=== PATIENT | male | born 1950 | race Caucasian/White ===

== ENCOUNTER 2016-12-11 21:10 | Inpatient (IN) | payer MEDICARE, MEDICAID ==
[~2016-12-11] VITALS: Ht 157.5 cm; Wt 79.1 kg
[~2016-12-11 21:10] MED LIST: CLOP75TA33 PO; GABA-531 PO; ISOS30TA6 PO; PRAV80TA21 PO
[2016-12-11 21:46] LABS: BASOPHILS % 0.5 % (0.0-2.0); EOSINOPHILS % 2.5 % (0.0-5.0); HEMATOCRIT. 40.9 % (42.0-52.0); HEMOGLOBIN. 13.4 g/dL (14.0-18.0); MEAN CORPUSCULAR HEMOGLOBIN 25.9 pg (28.0-32.0); MEAN PLATELET VOLUME 7.3 fl (7.4-10.4); MONOCYTES % 9.3 % (2.0-8.0); NEUTROPHILS % 69.7 % (40.0-76.0); PLATELET 212 x1000/uL (130-400); RED BLOOD CELL COUNT 5.18 mill/uL (4.7-6.1); RED CELL DISTRIBUTION WIDTH 16.2 % (11.6-14.6)
[2016-12-11 21:52] LABS: INR 1.2; PROTHROMBIN TIME 12.3 sec
[2016-12-11 21:54] LABS: CLARITY URINE CLEAR (CLEAR); COLOR URINE YELLOW (YELLOW); GLUCOSE URINE NEGATIVE (NEGATIVE); KETONES URINE NEGATIVE (NEGATIVE); LEUKOCYTE ESTERASE URINE NEGATIVE (NEGATIVE); NITRITE URINE NEGATIVE (NEGATIVE); OCCULT BLOOD URINE NEGATIVE (NEGATIVE); PH URINE 5.5 (4.5-8.0); PROTEIN URINE 1+ (NEGATIVE); SPECIFIC GRAVITY URINE 1.024 (1.005-1.030)
[2016-12-11 21:56] LABS: CARBON DIOXIDE 25 mEq/L (21-32); CHLORIDE 108 mEq/L (98-107)
[2016-12-11 22:02] LABS: TROPONIN I 0.15 ng/mL (0.00-0.04)
[2016-12-11] MEDS ORDERED: ASPIRIN 325MG TABLET PO NR (23:30)
[2016-12-12] VITALS (10 sets, daily range): BP systolic 112–142; BP diastolic 63–89
[2016-12-12] MEDS ORDERED: ENOXAPARIN 80MG/0.8ML SYR SUBCUT ONE (00:30)
[2016-12-12] MEDS ORDERED: LEVOFLOXACIN 750MG PREMIX 150 ML IV NR (01:45)
[2016-12-12] MEDS ORDERED: MORPHINE SULFATE 2 MG/ML CPJ (NOT FOR IM USE) IV PRN (03:15)
[2016-12-12] MEDS ORDERED: CLONIDINE 0.1MG TABLET PO PRN (03:15)
[2016-12-12 07:02] LABS: CARBON DIOXIDE 27 mEq/L (21-32); CHLORIDE 108 mEq/L (98-107)
[2016-12-12 08:00] LABS: CREATINE KINASE 92 IU/L (39-308); TROPONIN I 0.14 ng/mL (0.00-0.04)
[2016-12-12 08:30] LABS: HDL CHOLESTEROL 33 mg/dL (40-59); LDL CHOLESTEROL 70 mg/dL (5-100)
[2016-12-12] MEDS ORDERED: ENOXAPARIN 30MG/0.3ML SYR SUBCUT SCH (09:00)
[2016-12-12] MEDS ORDERED: ASPIRIN 81MG TABLET PO SCH (09:00)
[2016-12-12] MEDS: FUROSEMIDE 40MG/4ML VIAL IVP SCH ×2 (17:00→18:02)
[2016-12-12] MEDS: CARVEDILOL 3.125 MG TABLET PO SCH (20:31)
[2016-12-12] MEDS ORDERED: ATORVASTATIN CALCIUM 40MG TABLET PO SCH (21:00)
[2016-12-13] VITALS (14 sets, daily range): BP systolic 103–128; BP diastolic 62–84
[2016-12-13 06:09] LABS: BASOPHILS % 0.3 % (0.0-2.0); EOSINOPHILS % 2.6 % (0.0-5.0); HEMATOCRIT. 43.6 % (42.0-52.0); HEMOGLOBIN. 14.2 g/dL (14.0-18.0); LYMPHOCYTES % 17.6 % (20.0-50.0); MEAN CORPUSCULAR HEMOGLOBIN 25.7 pg (28.0-32.0); MEAN CORPUSCULAR VOLUME 78.8 fL (80.0-94.0); MEAN PLATELET VOLUME 7.5 fl (7.4-10.4); NEUTROPHILS % 70.5 % (40.0-76.0); PLATELET 206 x1000/uL (130-400); RED BLOOD CELL COUNT 5.54 mill/uL (4.7-6.1); RED CELL DISTRIBUTION WIDTH 16.4 % (11.6-14.6)
[2016-12-13 06:31] LABS: CARBON DIOXIDE 29 mEq/L (21-32); CHLORIDE 103 mEq/L (98-107)
[2016-12-13] MEDS ORDERED: LIDOCAINE HCL 1% 20ML VIAL (Pyxis) INJ ONE (08:47)
[2016-12-13] MEDS ORDERED: GENTAMICIN SULF 40MG/ML 2ML VIAL ONE (08:47)
[2016-12-13] MEDS ORDERED: GENTAMICIN/NS IRRIGATION 500 ML IR ONE (08:48)
[2016-12-13] MEDS ORDERED: ISOSORBIDE MONONITRATE 30MG TABLET SR 24HR PO SCH (09:00)
[2016-12-13] MEDS ORDERED: LISINOPRIL 5MG TABLET PO SCH (09:00)
[2016-12-13] MEDS ORDERED: CLOPIDOGREL 75MG TABLET PO SCH (09:00)
[2016-12-13] MEDS: FUROSEMIDE 40MG/4ML VIAL IVP SCH (09:00)
[2016-12-13] MEDS: CARVEDILOL 3.125 MG TABLET PO SCH (09:00)
[2016-12-13] MEDS ORDERED: ENOXAPARIN 40MG/0.4ML SYR SUBCUT SCH (09:00)
[2016-12-13] MEDS ORDERED: CEFAZOLIN 1000MG PREMIX 100 ML IV ONE (09:14)
[2016-12-13] MEDS ORDERED: MIDAZOLAM HCL 2 MG/2 ML VIAL ONE ×2 (09:31→10:49)
[2016-12-13] MEDS ORDERED: FENTANYL CITRATE/PF 50MCG/ML 2ML VIAL ONE (09:31)
[2016-12-13] MEDS ORDERED: DIPHENHYDRAMINE 50MG/ML VIAL ONE (09:31)
[2016-12-13] MEDS ORDERED: HYDROCODONE/ACETAMINOPHEN 5/325MG TABLET PO PRN (12:00)
[2016-12-13] MEDS ORDERED: ASPI-1160 PO (12:07)
[2016-12-13] MEDS ORDERED: LISI-186 PO (12:07)
[2016-12-13] MEDS ORDERED: ISOS30TA6 PO (12:07)
[2016-12-13] MEDS ORDERED: COR3 PO (12:07)
== END 2016-12-13 18:00 | disposition home or self-care (01) | DRG 245 ==
LOC: ER 21:40 → 3WST 12-12 00:23 → EDBEDREQ 12-12 00:28 → ENRESERV 12-12 02:12
PROVIDERS: ADMIT Hospitalist; ATTEND Hospitalist
PROC: 0JPT0PZ Removal of Cardiac Rhythm Related Device from Trunk Subcutaneous Tissue and Fascia, Open Approach (ICD-10-PCS; principal; 2016-12-13)
PROC: 0JH608Z Insertion of Defibrillator Generator into Chest Subcutaneous Tissue and Fascia, Open Approach (ICD-10-PCS; 2016-12-13)
PROC: 4B02XTZ Measurement of Cardiac Defibrillator, External Approach (ICD-10-PCS; 2016-12-13)
DX: I25.5 Ischemic cardiomyopathy (principal); I48.92 Unspecified atrial flutter; I50.22 Chronic systolic (congestive) heart failure; Z45.010 Encounter for checking and testing of cardiac pacemaker pulse generator [battery]; I25.10 Atherosclerotic heart disease of native coronary artery without angina pectoris; E11.9 Type 2 diabetes mellitus without complications; I48.0 Paroxysmal atrial fibrillation; E78.5 Hyperlipidemia, unspecified; I11.0 Hypertensive heart disease with heart failure; I25.2 Old myocardial infarction; Z82.49 Family history of ischemic heart disease and other diseases of the circulatory system; Z79.899 Other long term (current) drug therapy
CPT/HCPCS: 33263; 36415; 71010; 80048; 80053; 80061; 81001; 82550; 82553; 83036; 83735; 83880; 84484; 85025; 85610; 93005; 93306; 93641; 96365; 96372; 99291; C1721; J0690; J1200; J1580; J1650; J1940; J1956; J2250; J3010; J3490; J7050

== ENCOUNTER 2018-06-20 03:38 | Inpatient (IN) | payer MEDICARE, MEDICAID ==
[2018-06-20] VITALS (53 sets, daily range): BP systolic 92–151; BP diastolic 43–82
[~2018-06-20] VITALS: Ht 172.7 cm; Wt 83.5 kg
[~2018-06-20 03:38] MED LIST changes: +ASPI-1160 PO; +COR3 PO; +LISI-186 PO
[2018-06-20] MEDS ORDERED: ONDANSETRON HCL 4MG/2ML INJ IV STA (03:56)
[2018-06-20] MEDS ORDERED: NITROGLYCERIN 50MG PREMIX 250 ML IV ONE (03:56)
[2018-06-20] MEDS ORDERED: PROPOFOL 10MG/ML 100ML 100 ML IV ONE (04:00)
[2018-06-20] MEDS ORDERED: ETOMIDATE 2MG/ML 10ML VIAL IV ONE ×2 (04:00→14:33)
[2018-06-20] MEDS ORDERED: SUCCINYLCHOLINE CHLORIDE 200MG/10ML IV ONE ×2 (04:00→14:33)
[2018-06-20] MEDS ORDERED: MIDAZOLAM HCL 2 MG/2 ML VIAL IV ONE (04:15)
[2018-06-20 04:43] LABS: BASOPHILS % 0.4 % (0.0-2.0); EOSINOPHILS % 1.1 % (0.0-5.0); HEMATOCRIT. 44.6 % (42.0-52.0); HEMOGLOBIN. 13.6 g/dL (14.0-18.0); LYMPHOCYTES % 18.4 % (20.0-50.0); MEAN CORPUSCULAR HEMOGLOBIN 24.6 pg (28.0-32.0); MEAN CORPUSCULAR VOLUME 80.6 fL (80.0-94.0); MEAN PLATELET VOLUME 8.1 fl (7.4-10.4); MONOCYTES % 5.8 % (2.0-8.0); NEUTROPHILS % 74.3 % (40.0-76.0); PLATELET 270 x1000/uL (130-400); RED BLOOD CELL COUNT 5.53 mill/uL (4.7-6.1); RED CELL DISTRIBUTION WIDTH 18.4 % (11.6-14.6)
[2018-06-20 04:48] LABS: CHLORIDE 107 mEq/L (98-107)
[2018-06-20 04:52] LABS: INR 1.4; PARTIAL THROMBOPLASTIN TIME 31.3 sec (23.4-31.0); PROTHROMBIN TIME 13.8 sec (9.1-11.1)
[2018-06-20 05:52] LABS: BG BASE EXCESS -3.8 mmol/L (-2.0-2.0); BG CARBOXYHEMOGLOBIN 1.1 % (0.5-1.5); BG DEOXYHEMOGLOBIN 0.7 % (0.0-5.0); BG FRACTION INSPIRED OXYGEN 100; BG HCO3 ACT 26.4 mmol/L (22.0-26.0); BG METHEMOGLOBIN 0.3 % (0.0-1.5); BG OXYGEN SATURATION 99.3 % (92.0-98.5); BG OXYHEMOGLOBIN 97.9 % (94.0-97.0); BG PCO2 74.5 mmHg (35.0-45.0); BG PH 7.167 (7.350-7.450); BG PO2 351.5 mmHg (75.0-100.0); BG SAMPLE SITE RIGHT RADIAL; BG TIDAL VOLUME(mL) 500 mL; BG TOTAL HEMOGLOBIN 13.3 g/dL (12.0-18.0); BG VENT MODE VENT - A/C; BG VENT RATE 16 set
[2018-06-20 06:02] LABS: CLARITY URINE CLEAR (CLEAR); COLOR URINE YELLOW (YELLOW); KETONES URINE NEGATIVE (NEGATIVE); LEUKOCYTE ESTERASE URINE NEGATIVE (NEGATIVE); NITRITE URINE NEGATIVE (NEGATIVE); OCCULT BLOOD URINE TRACE (NEGATIVE); PROTEIN URINE 2+ (NEGATIVE)
[2018-06-20] MEDS ORDERED: DEXT 5%/0.45% NACL 1000ML 1,000 ML IV SCH (07:09)
[2018-06-20] MEDS ORDERED: LEVOFLOXACIN 500MG PREMIX 100 ML IV SCH (07:15)
[2018-06-20] MEDS ORDERED: ENOXAPARIN 40MG/0.4ML SYR SUBCUT SCH (07:15)
[2018-06-20] MEDS ORDERED: ONDANSETRON HCL 4MG/2ML INJ IV PRN (07:15)
[2018-06-20] MEDS: ENOXAPARIN 40MG/0.4ML SYR SUBCUT SCH (10:35)
[2018-06-20] MEDS: AMLODIPINE 10MG TABLET PO SCH (10:35)
[2018-06-20] MEDS: LISINOPRIL 10MG TABLET PO SCH (10:36)
[2018-06-20] MEDS ORDERED: DEXTROSE 50% WATER 50ML SYRINGE IV PRN (11:15)
[2018-06-20] MEDS: LEVOFLOXACIN 500MG PREMIX 100 ML IV SCH (11:35)
[2018-06-20] MEDS: INSULIN LISPRO 100 UNITS/ML SUBCUT SCH ×3 (12:00→21:00)
[2018-06-20] MEDS: BLOOD SUGAR DIAGNOSTIC STRIP TEST SCH ×3 (12:24→21:00)
[2018-06-20] MEDS: PANTOPRAZOLE SODIUM 40 MG/VIAL IV SCH (13:27)
[2018-06-20 13:47] LABS: BG BASE EXCESS -0.3 mmol/L (-2.0-2.0); BG CARBOXYHEMOGLOBIN 0.3 % (0.5-1.5); BG DEOXYHEMOGLOBIN 1.3 % (0.0-5.0); BG FRACTION INSPIRED OXYGEN 60; BG METHEMOGLOBIN 0.2 % (0.0-1.5); BG OXYGEN SATURATION 98.7 % (92.0-98.5); BG OXYHEMOGLOBIN 98.2 % (94.0-97.0); BG PCO2 33.4 mmHg (35.0-45.0); BG PH 7.456 (7.350-7.450); BG PO2 211.3 mmHg (75.0-100.0); BG SAMPLE SITE RIGHT BRACHIAL; BG TIDAL VOLUME(mL) 550 mL; BG TOTAL HEMOGLOBIN 12.1 g/dL (12.0-18.0); BG VENT MODE VENT - A/C; BG VENT RATE 20 set
[2018-06-20 15:41] LABS: CREATINE KINASE MB FRACTION 1.7 ng/mL (0.5-3.6)
[2018-06-20] MEDS: PROPOFOL 10MG/ML 100ML 100 ML IV PRN (16:15)
[2018-06-20] MEDS ORDERED: LEVOFLOXACIN 500MG PREMIX 100 ML IV NR (18:00)
[2018-06-21] VITALS (88 sets, daily range): BP systolic 104–155; BP diastolic 47–96
[2018-06-21 00:47] LABS: CREATINE KINASE MB FRACTION 1.3 ng/mL (0.5-3.6)
[2018-06-21] MEDS: PROPOFOL 10MG/ML 100ML 100 ML IV PRN ×3 (04:06→23:10)
[2018-06-21 05:41] LABS: BASOPHILS % 0.2 % (0.0-2.0); EOSINOPHILS % 0.4 % (0.0-5.0); HEMATOCRIT. 35.8 % (42.0-52.0); HEMOGLOBIN. 11.5 g/dL (14.0-18.0); LYMPHOCYTES % 8.6 % (20.0-50.0); MEAN CORPUSCULAR HEMOGLOBIN 24.8 pg (28.0-32.0); MEAN CORPUSCULAR VOLUME 77.3 fL (80.0-94.0); MEAN PLATELET VOLUME 8.2 fl (7.4-10.4); MONOCYTES % 6.8 % (2.0-8.0); PLATELET 201 x1000/uL (130-400); RED BLOOD CELL COUNT 4.64 mill/uL (4.7-6.1)
[2018-06-21 05:47] LABS: CHLORIDE 111 mEq/L (98-107)
[2018-06-21 05:53] LABS: LDL CHOLESTEROL 64 mg/dL (5-100)
[2018-06-21 05:54] LABS: HDL CHOLESTEROL 34 mg/dL (40-59)
[2018-06-21] MEDS: BLOOD SUGAR DIAGNOSTIC STRIP TEST SCH ×4 (06:30→23:16)
[2018-06-21] MEDS: INSULIN LISPRO 100 UNITS/ML SUBCUT SCH ×4 (06:40→23:15)
[2018-06-21] MEDS: LISINOPRIL 10MG TABLET PO SCH (08:30)
[2018-06-21] MEDS: AMLODIPINE 10MG TABLET PO SCH (08:31)
[2018-06-21] MEDS: PANTOPRAZOLE SODIUM 40 MG/VIAL IV SCH (08:31)
[2018-06-21] MEDS: ENOXAPARIN 40MG/0.4ML SYR SUBCUT SCH (08:31)
[2018-06-21 09:25] LABS: BG BASE EXCESS -0.3 mmol/L (-2.0-2.0); BG CARBOXYHEMOGLOBIN 0.7 % (0.5-1.5); BG DEOXYHEMOGLOBIN 1.9 % (0.0-5.0); BG FRACTION INSPIRED OXYGEN 40; BG HCO3 ACT 22.3 mmol/L (22.0-26.0); BG METHEMOGLOBIN 0.1 % (0.0-1.5); BG OXYGEN SATURATION 98.1 % (92.0-98.5); BG OXYHEMOGLOBIN 97.3 % (94.0-97.0); BG PCO2 30.6 mmHg (35.0-45.0); BG PH 7.481 (7.350-7.450); BG PO2 123.8 mmHg (75.0-100.0); BG SAMPLE SITE RIGHT BRACHIAL; BG TIDAL VOLUME(mL) 550 mL; BG TOTAL HEMOGLOBIN 12.8 g/dL (12.0-18.0); BG VENT MODE VENT - A/C; BG VENT RATE 20 set
[2018-06-21] MEDS ORDERED: POTASSIUM CHLORIDE 20MEQ/PACKET PO SCH (10:00)
[2018-06-21] MEDS ORDERED: FUROSEMIDE 40MG/4ML VIAL IVP NR ×2 (10:00)
[2018-06-21] MEDS ORDERED: POTASSIUM CHLORIDE 20MEQ TABLET SR PO SCH (10:00)
[2018-06-21] MEDS: LEVOFLOXACIN 500MG PREMIX 100 ML IV SCH (10:49)
[2018-06-21] MEDS: POTASSIUM CHLORIDE 20MEQ/PACKET PO SCH (10:59)
[2018-06-22] VITALS (93 sets, daily range): BP systolic 62–161; BP diastolic 21–85
[2018-06-22] MEDS: IPRATROPIUM/ALBUTEROL 0.5-3(2.5)MG/3ML NEB HHN SCH ×6 (01:03→20:37)
[2018-06-22 05:58] LABS: BASOPHILS % 0.6 % (0.0-2.0); EOSINOPHILS % 1.6 % (0.0-5.0); HEMATOCRIT. 39.5 % (42.0-52.0); HEMOGLOBIN. 12.8 g/dL (14.0-18.0); LYMPHOCYTES % 16.8 % (20.0-50.0); MEAN CORPUSCULAR HEMOGLOBIN 24.9 pg (28.0-32.0); MEAN CORPUSCULAR VOLUME 76.8 fL (80.0-94.0); MONOCYTES % 9.2 % (2.0-8.0); NEUTROPHILS % 71.8 % (40.0-76.0); PLATELET 260 x1000/uL (130-400); RED BLOOD CELL COUNT 5.13 mill/uL (4.7-6.1); RED CELL DISTRIBUTION WIDTH 17.7 % (11.6-14.6)
[2018-06-22] MEDS: BLOOD SUGAR DIAGNOSTIC STRIP TEST SCH ×4 (06:00→23:48)
[2018-06-22 06:07] LABS: CHLORIDE 112 mEq/L (98-107)
[2018-06-22] MEDS: PROPOFOL 10MG/ML 100ML 100 ML IV PRN (08:15)
[2018-06-22 08:27] LABS: BG BASE EXCESS -0.5 mmol/L (-2.0-2.0); BG CARBOXYHEMOGLOBIN 0.8 % (0.5-1.5); BG FRACTION INSPIRED OXYGEN 40; BG HCO3 ACT 22.6 mmol/L (22.0-26.0); BG METHEMOGLOBIN 0.3 % (0.0-1.5); BG OXYHEMOGLOBIN 96.9 % (94.0-97.0); BG PCO2 32.6 mmHg (35.0-45.0); BG PH 7.458 (7.350-7.450); BG PO2 111.8 mmHg (75.0-100.0); BG SAMPLE SITE RIGHT RADIAL; BG TIDAL VOLUME(mL) 550 mL; BG TOTAL HEMOGLOBIN 13.8 g/dL (12.0-18.0); BG VENT MODE VENT - A/C; BG VENT RATE 20 set
[2018-06-22] MEDS ORDERED: FUROSEMIDE 40MG/4ML VIAL IVP SCH (09:00)
[2018-06-22] MEDS: PANTOPRAZOLE SODIUM 40 MG/VIAL IV SCH (10:09)
[2018-06-22] MEDS: POTASSIUM CHLORIDE 20MEQ/PACKET PO SCH (10:10)
[2018-06-22] MEDS: ENOXAPARIN 40MG/0.4ML SYR SUBCUT SCH (10:10)
[2018-06-22] MEDS: LISINOPRIL 10MG TABLET PO SCH (10:10)
[2018-06-22] MEDS: LEVOFLOXACIN 500MG PREMIX 100 ML IV SCH (10:11)
[2018-06-22] MEDS: AMLODIPINE 10MG TABLET PO SCH (10:11)
[2018-06-22] MEDS ORDERED: ASPIRIN 81MG EC TABLET PO SCH (11:00)
[2018-06-22] MEDS: INSULIN LISPRO 100 UNITS/ML SUBCUT SCH ×3 (12:00→23:53)
[2018-06-22] MEDS: ASPIRIN 81MG TABLET PO SCH (12:41)
[2018-06-22] MEDS: CLOPIDOGREL 75MG TABLET PO SCH (12:41)
[2018-06-22] MEDS: CEFEPIME 1,000 MG in DEXTROSE 5% WATER 50 ML IV SCH (13:29)
[2018-06-22] MEDS: FENTANYL CITRATE/PF 500 MCG in SODIUM CHLORIDE 0.9% 40 ML IV PRN ×2 (13:31→22:41)
[2018-06-22] MEDS: METRONIDAZOLE 500 MG PREMIX 100 ML IV SCH ×2 (14:39→21:27)
[2018-06-22] MEDS: FUROSEMIDE 40MG/4ML VIAL IVP SCH (18:12)
[2018-06-22] MEDS: ATORVASTATIN CALCIUM 40MG TABLET PO SCH (21:26)
[2018-06-22] MEDS: CARVEDILOL 3.125 MG TABLET PO SCH (21:27)
[2018-06-23] VITALS (87 sets, daily range): BP systolic 84–151; BP diastolic 51–83
[2018-06-23] MEDS: IPRATROPIUM/ALBUTEROL 0.5-3(2.5)MG/3ML NEB HHN SCH ×6 (01:05→20:15)
[2018-06-23] MEDS: CEFEPIME 1,000 MG in DEXTROSE 5% WATER 50 ML IV SCH ×2 (01:42→13:03)
[2018-06-23 05:29] LABS: BASOPHILS % 0.3 % (0.0-2.0); EOSINOPHILS % 1.3 % (0.0-5.0); HEMOGLOBIN. 13.9 g/dL (14.0-18.0); LYMPHOCYTES % 13.3 % (20.0-50.0); MEAN CORPUSCULAR HEMOGLOBIN 24.8 pg (28.0-32.0); MEAN CORPUSCULAR VOLUME 76.5 fL (80.0-94.0); MEAN PLATELET VOLUME 7.7 fl (7.4-10.4); MONOCYTES % 9.5 % (2.0-8.0); NEUTROPHILS % 75.6 % (40.0-76.0); PLATELET 310 x1000/uL (130-400); RED BLOOD CELL COUNT 5.62 mill/uL (4.7-6.1); RED CELL DISTRIBUTION WIDTH 17.9 % (11.6-14.6)
[2018-06-23] MEDS: FENTANYL CITRATE/PF 500 MCG in SODIUM CHLORIDE 0.9% 40 ML IV PRN ×2 (05:33→13:01)
[2018-06-23 05:38] LABS: CHLORIDE 113 mEq/L (98-107)
[2018-06-23] MEDS: INSULIN LISPRO 100 UNITS/ML SUBCUT SCH ×3 (06:11→18:00)
[2018-06-23] MEDS: METRONIDAZOLE 500 MG PREMIX 100 ML IV SCH ×3 (06:13→22:30)
[2018-06-23] MEDS: FUROSEMIDE 40MG/4ML VIAL IVP SCH (06:18)
[2018-06-23] MEDS: BLOOD SUGAR DIAGNOSTIC STRIP TEST SCH ×3 (06:18→18:00)
[2018-06-23] MEDS ORDERED: FUROSEMIDE 40MG/4ML VIAL IVP SCH ×2 (09:00)
[2018-06-23] MEDS: ASPIRIN 81MG TABLET PO SCH (09:26)
[2018-06-23] MEDS: AMLODIPINE 10MG TABLET PO SCH (09:26)
[2018-06-23] MEDS: PANTOPRAZOLE SODIUM 40 MG/VIAL IV SCH (09:26)
[2018-06-23] MEDS: CLOPIDOGREL 75MG TABLET PO SCH (09:26)
[2018-06-23] MEDS: POTASSIUM CHLORIDE 20MEQ/PACKET PO SCH (09:26)
[2018-06-23] MEDS: LISINOPRIL 10MG TABLET PO SCH (09:27)
[2018-06-23] MEDS: ENOXAPARIN 40MG/0.4ML SYR SUBCUT SCH (09:27)
[2018-06-23] MEDS: CARVEDILOL 3.125 MG TABLET PO SCH ×2 (09:27→21:00)
[2018-06-23] MEDS: ISOSORBIDE MONONITRATE 30MG TABLET SR 24HR PO SCH (09:27)
[2018-06-23 13:11] LABS: BG DEOXYHEMOGLOBIN 3.4 % (0.0-5.0); BG FRACTION INSPIRED OXYGEN 40; BG HCO3 ACT 25.3 mmol/L (22.0-26.0); BG METHEMOGLOBIN 0.2 % (0.0-1.5); BG OXYGEN SATURATION 96.6 % (92.0-98.5); BG OXYHEMOGLOBIN 95.4 % (94.0-97.0); BG PCO2 43.8 mmHg (35.0-45.0); BG PRESSURE SUPPORT 12; BG SAMPLE SITE RIGHT RADIAL; BG TIDAL VOLUME(mL) 550 mL; BG TOTAL HEMOGLOBIN 13.9 g/dL (12.0-18.0); BG VENT MODE VENT - SIMV; BG VENT RATE 8 set
[2018-06-23] MEDS: ATORVASTATIN CALCIUM 40MG TABLET PO SCH (21:00)
[2018-06-24] VITALS (65 sets, daily range): BP systolic 91–143; BP diastolic 55–77
[2018-06-24] MEDS: IPRATROPIUM/ALBUTEROL 0.5-3(2.5)MG/3ML NEB HHN SCH ×6 (00:07→20:35)
[2018-06-24] MEDS: CEFEPIME 1,000 MG in DEXTROSE 5% WATER 50 ML IV SCH ×2 (01:00→13:31)
[2018-06-24] MEDS: FENTANYL CITRATE/PF 500 MCG in SODIUM CHLORIDE 0.9% 40 ML IV PRN (03:04)
[2018-06-24] MEDS: METRONIDAZOLE 500 MG PREMIX 100 ML IV SCH ×3 (06:00→21:04)
[2018-06-24] MEDS: INSULIN LISPRO 100 UNITS/ML SUBCUT SCH ×4 (06:00→18:00)
[2018-06-24] MEDS: BLOOD SUGAR DIAGNOSTIC STRIP TEST SCH ×4 (06:00→18:29)
[2018-06-24 06:11] LABS: BASOPHILS % 0.6 % (0.0-2.0); EOSINOPHILS % 0.5 % (0.0-5.0); HEMATOCRIT. 41.2 % (42.0-52.0); HEMOGLOBIN. 13.2 g/dL (14.0-18.0); LYMPHOCYTES % 8.8 % (20.0-50.0); MEAN CORPUSCULAR HEMOGLOBIN 24.8 pg (28.0-32.0); MEAN CORPUSCULAR VOLUME 77.2 fL (80.0-94.0); MEAN PLATELET VOLUME 7.9 fl (7.4-10.4); MONOCYTES % 8.9 % (2.0-8.0); NEUTROPHILS % 81.2 % (40.0-76.0); PLATELET 309 x1000/uL (130-400); RED BLOOD CELL COUNT 5.33 mill/uL (4.7-6.1); RED CELL DISTRIBUTION WIDTH 17.4 % (11.6-14.6)
[2018-06-24 06:44] LABS: CHLORIDE 116 mEq/L (98-107)
[2018-06-24] MEDS: ISOSORBIDE MONONITRATE 30MG TABLET SR 24HR PO SCH (08:48)
[2018-06-24] MEDS: POTASSIUM CHLORIDE 20MEQ/PACKET PO SCH (08:48)
[2018-06-24] MEDS: LISINOPRIL 10MG TABLET PO SCH (08:48)
[2018-06-24] MEDS: CLOPIDOGREL 75MG TABLET PO SCH (08:48)
[2018-06-24] MEDS: CARVEDILOL 3.125 MG TABLET PO SCH ×2 (08:49→21:04)
[2018-06-24] MEDS: PANTOPRAZOLE SODIUM 40 MG/VIAL IV SCH (08:49)
[2018-06-24] MEDS: AMLODIPINE 10MG TABLET PO SCH (08:49)
[2018-06-24] MEDS: ASPIRIN 81MG TABLET PO SCH (08:49)
[2018-06-24] MEDS: ENOXAPARIN 40MG/0.4ML SYR SUBCUT SCH (08:55)
[2018-06-24] MEDS ORDERED: FUROSEMIDE 40MG/4ML VIAL IVP SCH (09:00)
[2018-06-24 13:11] LABS: BG BASE EXCESS 2.4 mmol/L (-2.0-2.0); BG CARBOXYHEMOGLOBIN 0.7 % (0.5-1.5); BG DEOXYHEMOGLOBIN 6.1 % (0.0-5.0); BG FRACTION INSPIRED OXYGEN 40; BG HCO3 ACT 27.5 mmol/L (22.0-26.0); BG METHEMOGLOBIN 0.1 % (0.0-1.5); BG OXYGEN SATURATION 93.9 % (92.0-98.5); BG OXYHEMOGLOBIN 93.1 % (94.0-97.0); BG PCO2 44.3 mmHg (35.0-45.0); BG PH 7.411 (7.350-7.450); BG PO2 71.1 mmHg (75.0-100.0); BG PRESSURE SUPPORT 8; BG SAMPLE SITE RIGHT RADIAL; BG TOTAL HEMOGLOBIN 13.8 g/dL (12.0-18.0); BG VENT MODE VENT - CPAP
[2018-06-24] MEDS: ATORVASTATIN CALCIUM 40MG TABLET PO SCH (21:04)
[2018-06-24] MEDS: ACETAMINOPHEN 325MG TABLET PO PRN (21:12)
[2018-06-25] VITALS (59 sets, daily range): BP systolic 70–137; BP diastolic 41–86
[2018-06-25] MEDS: BLOOD SUGAR DIAGNOSTIC STRIP TEST SCH ×4 (00:15→17:06)
[2018-06-25] MEDS: CEFEPIME 1,000 MG in DEXTROSE 5% WATER 50 ML IV SCH ×2 (00:25→12:24)
[2018-06-25] MEDS: IPRATROPIUM/ALBUTEROL 0.5-3(2.5)MG/3ML NEB HHN SCH ×6 (00:47→20:50)
[2018-06-25] MEDS: ACETAMINOPHEN 325MG TABLET PO PRN (04:20)
[2018-06-25 05:42] LABS: BASOPHILS % 0.5 % (0.0-2.0); EOSINOPHILS % 0.7 % (0.0-5.0); HEMATOCRIT. 42.3 % (42.0-52.0); HEMOGLOBIN. 13.3 g/dL (14.0-18.0); LYMPHOCYTES % 10.4 % (20.0-50.0); MEAN CORPUSCULAR HEMOGLOBIN 24.4 pg (28.0-32.0); MEAN CORPUSCULAR VOLUME 77.9 fL (80.0-94.0); MEAN PLATELET VOLUME 7.7 fl (7.4-10.4); MONOCYTES % 10.6 % (2.0-8.0); NEUTROPHILS % 77.8 % (40.0-76.0); PLATELET 335 x1000/uL (130-400); RED BLOOD CELL COUNT 5.43 mill/uL (4.7-6.1); RED CELL DISTRIBUTION WIDTH 17.6 % (11.6-14.6)
[2018-06-25 05:48] LABS: CHLORIDE 120 mEq/L (98-107)
[2018-06-25] MEDS: INSULIN LISPRO 100 UNITS/ML SUBCUT SCH ×4 (06:00→17:06)
[2018-06-25] MEDS: METRONIDAZOLE 500 MG PREMIX 100 ML IV SCH ×3 (06:04→21:49)
[2018-06-25] MEDS ORDERED: FUROSEMIDE 40MG/4ML VIAL IVP SCH (09:00)
[2018-06-25] MEDS: CLOPIDOGREL 75MG TABLET PO SCH (09:07)
[2018-06-25] MEDS: POTASSIUM CHLORIDE 20MEQ/PACKET PO SCH (09:07)
[2018-06-25] MEDS: PANTOPRAZOLE SODIUM 40 MG/VIAL IV SCH (09:07)
[2018-06-25] MEDS: ASPIRIN 81MG TABLET PO SCH (09:07)
[2018-06-25] MEDS: ENOXAPARIN 40MG/0.4ML SYR SUBCUT SCH (09:08)
[2018-06-25] MEDS: LISINOPRIL 10MG TABLET PO SCH (10:18)
[2018-06-25] MEDS: ISOSORBIDE MONONITRATE 30MG TABLET SR 24HR PO SCH (10:18)
[2018-06-25] MEDS: AMLODIPINE 10MG TABLET PO SCH (10:18)
[2018-06-25] MEDS: CARVEDILOL 3.125 MG TABLET PO SCH ×2 (10:18→21:58)
[2018-06-25] MEDS ORDERED: BISACODYL 5MG TABLET PO NR (12:00)
[2018-06-25] MEDS: DOCUSATE SODIUM 100MG CAPSULE PO SCH ×3 (12:08→16:18)
[2018-06-25] MEDS ORDERED: LACTULOSE 20G/30ML UDC PO PRN (21:00)
[2018-06-25] MEDS: ATORVASTATIN CALCIUM 40MG TABLET PO SCH (21:48)
[2018-06-26] VITALS (13 sets, daily range): BP systolic 76–158; BP diastolic 33–66
[2018-06-26] MEDS: IPRATROPIUM/ALBUTEROL 0.5-3(2.5)MG/3ML NEB HHN SCH ×7 (00:07→23:50)
[2018-06-26] MEDS: CEFEPIME 1,000 MG in DEXTROSE 5% WATER 50 ML IV SCH ×2 (01:00→13:03)
[2018-06-26] MEDS: BLOOD SUGAR DIAGNOSTIC STRIP TEST SCH ×5 (05:54→21:32)
[2018-06-26] MEDS: METRONIDAZOLE 500 MG PREMIX 100 ML IV SCH ×3 (05:54→21:14)
[2018-06-26] MEDS: INSULIN LISPRO 100 UNITS/ML SUBCUT SCH ×5 (05:55→21:31)
[2018-06-26] MEDS: ISOSORBIDE MONONITRATE 30MG TABLET SR 24HR PO SCH (09:02)
[2018-06-26] MEDS: POTASSIUM CHLORIDE 20MEQ/PACKET PO SCH (09:02)
[2018-06-26] MEDS: DOCUSATE SODIUM 100MG CAPSULE PO SCH ×3 (09:02→17:39)
[2018-06-26] MEDS: PANTOPRAZOLE SODIUM 40 MG/VIAL IV SCH (09:02)
[2018-06-26] MEDS: CLOPIDOGREL 75MG TABLET PO SCH (09:03)
[2018-06-26] MEDS: AMLODIPINE 10MG TABLET PO SCH (09:03)
[2018-06-26] MEDS: CARVEDILOL 3.125 MG TABLET PO SCH ×2 (09:03→21:00)
[2018-06-26] MEDS: ASPIRIN 81MG TABLET PO SCH (09:04)
[2018-06-26] MEDS: LISINOPRIL 10MG TABLET PO SCH (09:04)
[2018-06-26] MEDS: ENOXAPARIN 40MG/0.4ML SYR SUBCUT SCH (09:04)
[2018-06-26 09:19] LABS: BASOPHILS % 0.6 % (0.0-2.0); EOSINOPHILS % 4.6 % (0.0-5.0); HEMATOCRIT. 42.6 % (42.0-52.0); HEMOGLOBIN. 13.5 g/dL (14.0-18.0); LYMPHOCYTES % 11.7 % (20.0-50.0); MEAN CORPUSCULAR HEMOGLOBIN 24.7 pg (28.0-32.0); MEAN CORPUSCULAR VOLUME 77.6 fL (80.0-94.0); MEAN PLATELET VOLUME 7.5 fl (7.4-10.4); MONOCYTES % 6.5 % (2.0-8.0); NEUTROPHILS % 76.6 % (40.0-76.0); PLATELET 309 x1000/uL (130-400); RED BLOOD CELL COUNT 5.48 mill/uL (4.7-6.1); RED CELL DISTRIBUTION WIDTH 17.2 % (11.6-14.6)
[2018-06-26 11:24] LABS: CHLORIDE 113 mEq/L (98-107)
[2018-06-26] MEDS: GUAIFENESIN 600MG ER TABLET PO SCH ×2 (14:50→21:13)
[2018-06-26] MEDS: ATORVASTATIN CALCIUM 40MG TABLET PO SCH (21:13)
[2018-06-27] VITALS (8 sets, daily range): BP systolic 90–130; BP diastolic 48–63
[2018-06-27] MEDS: CEFEPIME 1,000 MG in DEXTROSE 5% WATER 50 ML IV SCH ×2 (00:35→11:42)
[2018-06-27] MEDS: IPRATROPIUM/ALBUTEROL 0.5-3(2.5)MG/3ML NEB HHN SCH ×4 (04:09→15:54)
[2018-06-27] MEDS: METRONIDAZOLE 500MG TABLET PO SCH ×2 (05:10→13:35)
[2018-06-27 07:32] LABS: BASOPHILS % 0.4 % (0.0-2.0); EOSINOPHILS % 4.6 % (0.0-5.0); HEMATOCRIT. 40.3 % (42.0-52.0); HEMOGLOBIN. 13.1 g/dL (14.0-18.0); LYMPHOCYTES % 13.2 % (20.0-50.0); MEAN CORPUSCULAR VOLUME 77.3 fL (80.0-94.0); MEAN PLATELET VOLUME 7.7 fl (7.4-10.4); MONOCYTES % 7.7 % (2.0-8.0); NEUTROPHILS % 74.1 % (40.0-76.0); PLATELET 299 x1000/uL (130-400); RED BLOOD CELL COUNT 5.22 mill/uL (4.7-6.1); RED CELL DISTRIBUTION WIDTH 17.4 % (11.6-14.6)
[2018-06-27] MEDS: INSULIN LISPRO 100 UNITS/ML SUBCUT SCH ×2 (08:00→13:35)
[2018-06-27] MEDS: BLOOD SUGAR DIAGNOSTIC STRIP TEST SCH ×2 (08:06→11:42)
[2018-06-27] MEDS: PANTOPRAZOLE SODIUM 40 MG/VIAL IV SCH (08:42)
[2018-06-27] MEDS: GUAIFENESIN 600MG ER TABLET PO SCH (08:43)
[2018-06-27] MEDS: POTASSIUM CHLORIDE 20MEQ/PACKET PO SCH (08:43)
[2018-06-27] MEDS: DOCUSATE SODIUM 100MG CAPSULE PO SCH (08:43)
[2018-06-27] MEDS: CLOPIDOGREL 75MG TABLET PO SCH (08:43)
[2018-06-27] MEDS: ASPIRIN 81MG TABLET PO SCH (08:43)
[2018-06-27] MEDS: AMLODIPINE 10MG TABLET PO SCH (08:44)
[2018-06-27] MEDS: ISOSORBIDE MONONITRATE 30MG TABLET SR 24HR PO SCH (08:44)
[2018-06-27] MEDS: CARVEDILOL 3.125 MG TABLET PO SCH (08:44)
[2018-06-27] MEDS: LISINOPRIL 10MG TABLET PO SCH (08:45)
[2018-06-27] MEDS: ENOXAPARIN 40MG/0.4ML SYR SUBCUT SCH (08:45)
[2018-06-27 09:09] LABS: CHLORIDE 108 mEq/L (98-107)
[2018-06-27] MEDS ORDERED: FUROSEMIDE 20MG TABLET PO SCH (21:00)
== END 2018-06-27 16:27 | DRG 870 ==
LOC: ER 04:00 → MICUNO 06:26 → EDBEDREQTM 06:33 → EDBEDREQ 06:33 → SUPCPDRO 07:06 → ENRESERV 07:48 → 5EST 06-25 18:11
PROVIDERS: ADMIT Hospitalist; ATTEND Hospitalist
PROC: 5A1955Z Respiratory Ventilation, Greater than 96 Consecutive Hours (ICD-10-PCS; principal; 2018-06-20)
PROC: 0BH17EZ Insertion of Endotracheal Airway into Trachea, Via Natural or Artificial Opening (ICD-10-PCS; 2018-06-20)
PROC: 4B02XTZ Measurement of Cardiac Defibrillator, External Approach (ICD-10-PCS; 2018-06-23)
DX: A41.9 Sepsis, unspecified organism (principal); G93.41 Metabolic encephalopathy; J96.00 Acute respiratory failure, unspecified whether with hypoxia or hypercapnia; J69.0 Pneumonitis due to inhalation of food and vomit; I50.43 Acute on chronic combined systolic (congestive) and diastolic (congestive) heart failure; E87.0 Hyperosmolality and hypernatremia; I25.5 Ischemic cardiomyopathy; I11.0 Hypertensive heart disease with heart failure; E78.5 Hyperlipidemia, unspecified; E11.9 Type 2 diabetes mellitus without complications; I25.2 Old myocardial infarction; I25.10 Atherosclerotic heart disease of native coronary artery without angina pectoris; Z95.810 Presence of automatic (implantable) cardiac defibrillator; Z98.61 Coronary angioplasty status
CPT/HCPCS: 31500; 36415; 36600; 71045; 74018; 76705; 80048; 80061; 82375; 82550; 82553; 82805; 82962; 83036; 83605; 83735; 83880; 84478; 84484; 87070; 92610; 93005; 93306; 93970; 94002; 94003; 94640; 96365; 96366; 96375; 97163; 97166; 97530; 97535; 99291; C9113; J0330; J0692; J1650; J1815; J1940; J1956; J2250; J2405; J2704; J3010; J3490; J7050; J7060; J7620; A4315

== ENCOUNTER 2018-06-27 16:20 | Inpatient (IN) | payer MEDICARE, MEDICAID ==
[~2018-06-27] VITALS: Ht 160 cm; Wt 83.0 kg
[2018-06-27 16:20] VITALS: BP 102/55
[2018-06-27] MEDS ORDERED: LACTULOSE 20G/30ML UDC PO PRN (17:15)
[2018-06-27] MEDS ORDERED: ONDANSETRON HCL 4MG/2ML INJ IV PRN (17:15)
[2018-06-27] MEDS ORDERED: ACETAMINOPHEN 325MG TABLET PO PRN (17:15)
[2018-06-27] MEDS ORDERED: DEXTROSE 50% WATER 50ML SYRINGE IV PRN (17:30)
[2018-06-27] MEDS ORDERED: PNEUMOCOCCAL 23-VAL P-SAC VAC 0.5 ML IM ONE (18:15)
[2018-06-27 20:00] VITALS: BP 98/55
[2018-06-27] MEDS: IPRATROPIUM/ALBUTEROL 0.5-3(2.5)MG/3ML NEB HHN SCH (20:43)
[2018-06-27] MEDS: GUAIFENESIN 600MG ER TABLET PO SCH (20:47)
[2018-06-27] MEDS: ATORVASTATIN CALCIUM 40MG TABLET PO SCH (20:47)
[2018-06-27] MEDS: FUROSEMIDE 20MG TABLET PO SCH (20:47)
[2018-06-27] MEDS: CARVEDILOL 3.125 MG TABLET PO SCH (20:47)
[2018-06-27] MEDS: INSULIN LISPRO 100 UNITS/ML SUBCUT SCH (21:00)
[2018-06-27] MEDS ORDERED: CEFEPIME HCL 1000MG/VIAL INJ IV SCH (21:00)
[2018-06-27] MEDS: METRONIDAZOLE 500MG TABLET PO SCH (21:27)
[2018-06-27] MEDS: BLOOD SUGAR DIAGNOSTIC STRIP TEST SCH (21:29)
[2018-06-27] MEDS: CEFEPIME 1,000 MG in DEXTROSE 5% WATER 50 ML IV SCH (22:21)
[2018-06-27 23:00] VITALS: BP 109/56
[2018-06-28] MEDS: IPRATROPIUM/ALBUTEROL 0.5-3(2.5)MG/3ML NEB HHN SCH ×6 (00:52→20:58)
[2018-06-28] MEDS: METRONIDAZOLE 500MG TABLET PO SCH ×3 (06:00→21:25)
[2018-06-28] MEDS: BLOOD SUGAR DIAGNOSTIC STRIP TEST SCH ×4 (06:06→20:54)
[2018-06-28] MEDS: INSULIN LISPRO 100 UNITS/ML SUBCUT SCH ×4 (06:37→20:53)
[2018-06-28 08:00] VITALS: BP 112/65
[2018-06-28] MEDS: ISOSORBIDE MONONITRATE 30MG TABLET SR 24HR PO SCH (09:00)
[2018-06-28] MEDS ORDERED: PANTOPRAZOLE SODIUM 40 MG/VIAL IV SCH (09:00)
[2018-06-28] MEDS: CLOPIDOGREL 75MG TABLET PO SCH (09:34)
[2018-06-28] MEDS: GUAIFENESIN 600MG ER TABLET PO SCH ×2 (09:34→20:49)
[2018-06-28] MEDS: POTASSIUM CHLORIDE 20MEQ/PACKET PO SCH (09:34)
[2018-06-28] MEDS: FUROSEMIDE 20MG TABLET PO SCH ×2 (09:34→20:49)
[2018-06-28] MEDS: DOCUSATE SODIUM 100MG CAPSULE PO SCH ×2 (09:34→16:23)
[2018-06-28] MEDS: LISINOPRIL 10MG TABLET PO SCH (09:34)
[2018-06-28] MEDS: ASPIRIN 81MG TABLET PO SCH (09:34)
[2018-06-28] MEDS: AMLODIPINE 10MG TABLET PO SCH (09:35)
[2018-06-28] MEDS: CARVEDILOL 3.125 MG TABLET PO SCH ×2 (09:35→20:50)
[2018-06-28] MEDS: ENOXAPARIN 40MG/0.4ML SYR SUBCUT SCH (09:39)
[2018-06-28] MEDS: CEFEPIME 1,000 MG in DEXTROSE 5% WATER 50 ML IV SCH ×2 (10:34→22:24)
[2018-06-28] MEDS ORDERED: ONDANSETRON 4MG ODT PO PRN (11:15)
[2018-06-28 20:00] VITALS: BP 104/52
[2018-06-28] MEDS: ATORVASTATIN CALCIUM 40MG TABLET PO SCH (20:49)
[2018-06-29] MEDS: IPRATROPIUM/ALBUTEROL 0.5-3(2.5)MG/3ML NEB HHN SCH ×6 (01:25→19:50)
[2018-06-29] MEDS: METRONIDAZOLE 500MG TABLET PO SCH ×3 (05:07→21:42)
[2018-06-29] MEDS: INSULIN LISPRO 100 UNITS/ML SUBCUT SCH ×4 (06:01→21:00)
[2018-06-29] MEDS: BLOOD SUGAR DIAGNOSTIC STRIP TEST SCH ×4 (06:01→21:00)
[2018-06-29 08:35] VITALS: BP 123/66
[2018-06-29] MEDS: CLOPIDOGREL 75MG TABLET PO SCH (08:48)
[2018-06-29] MEDS: ISOSORBIDE MONONITRATE 30MG TABLET SR 24HR PO SCH (08:48)
[2018-06-29] MEDS: PANTOPRAZOLE 40MG DR TABLET PO SCH (08:49)
[2018-06-29] MEDS: GUAIFENESIN 600MG ER TABLET PO SCH ×2 (08:49→21:42)
[2018-06-29] MEDS: DOCUSATE SODIUM 100MG CAPSULE PO SCH ×2 (08:49→16:33)
[2018-06-29] MEDS: FUROSEMIDE 20MG TABLET PO SCH ×2 (08:49→21:42)
[2018-06-29] MEDS: CARVEDILOL 3.125 MG TABLET PO SCH ×2 (08:49→21:43)
[2018-06-29] MEDS: ASPIRIN 81MG TABLET PO SCH (08:49)
[2018-06-29] MEDS: LISINOPRIL 10MG TABLET PO SCH (09:00)
[2018-06-29] MEDS: AMLODIPINE 10MG TABLET PO SCH (09:00)
[2018-06-29] MEDS: POTASSIUM CHLORIDE 20MEQ/PACKET PO SCH (09:22)
[2018-06-29] MEDS: ENOXAPARIN 40MG/0.4ML SYR SUBCUT SCH (09:23)
[2018-06-29] MEDS: CEFEPIME 1,000 MG in DEXTROSE 5% WATER 50 ML IV SCH (12:00)
[2018-06-29 14:07] LABS: BASOPHILS % 0.5 % (0.0-2.0); EOSINOPHILS % 2.3 % (0.0-5.0); HEMATOCRIT. 41.7 % (42.0-52.0); HEMOGLOBIN. 13.3 g/dL (14.0-18.0); LYMPHOCYTES % 16.5 % (20.0-50.0); MEAN CORPUSCULAR HEMOGLOBIN 24.5 pg (28.0-32.0); MEAN CORPUSCULAR VOLUME 76.8 fL (80.0-94.0); MEAN PLATELET VOLUME 7.8 fl (7.4-10.4); MONOCYTES % 9.2 % (2.0-8.0); NEUTROPHILS % 71.5 % (40.0-76.0); PLATELET 286 x1000/uL (130-400); RED BLOOD CELL COUNT 5.44 mill/uL (4.7-6.1); RED CELL DISTRIBUTION WIDTH 16.9 % (11.6-14.6)
[2018-06-29 14:09] LABS: CHLORIDE 102 mEq/L (98-107)
[2018-06-29 20:00] VITALS: BP 118/70
[2018-06-30] MEDS: IPRATROPIUM/ALBUTEROL 0.5-3(2.5)MG/3ML NEB HHN SCH ×6 (01:40→20:01)
[2018-06-30] MEDS: BLOOD SUGAR DIAGNOSTIC STRIP TEST SCH ×4 (05:40→21:28)
[2018-06-30] MEDS: INSULIN LISPRO 100 UNITS/ML SUBCUT SCH ×4 (05:40→21:40)
[2018-06-30 07:29] LABS: BASOPHILS % 0.6 % (0.0-2.0); HEMATOCRIT. 40.2 % (42.0-52.0); LYMPHOCYTES % 16.5 % (20.0-50.0); MEAN CORPUSCULAR HEMOGLOBIN 24.7 pg (28.0-32.0); MEAN CORPUSCULAR VOLUME 76.4 fL (80.0-94.0); MEAN PLATELET VOLUME 7.7 fl (7.4-10.4); MONOCYTES % 8.4 % (2.0-8.0); NEUTROPHILS % 71.5 % (40.0-76.0); PLATELET 266 x1000/uL (130-400); RED BLOOD CELL COUNT 5.26 mill/uL (4.7-6.1); RED CELL DISTRIBUTION WIDTH 16.6 % (11.6-14.6)
[2018-06-30 08:00] VITALS: BP 117/65
[2018-06-30] MEDS: DOCUSATE SODIUM 100MG CAPSULE PO SCH ×2 (08:42→16:30)
[2018-06-30] MEDS: ENOXAPARIN 40MG/0.4ML SYR SUBCUT SCH (08:42)
[2018-06-30] MEDS: CLOPIDOGREL 75MG TABLET PO SCH (08:42)
[2018-06-30] MEDS: GUAIFENESIN 600MG ER TABLET PO SCH ×2 (08:42→21:27)
[2018-06-30] MEDS: FUROSEMIDE 20MG TABLET PO SCH ×2 (08:43→21:27)
[2018-06-30] MEDS: CARVEDILOL 3.125 MG TABLET PO SCH ×2 (08:43→21:28)
[2018-06-30] MEDS: ASPIRIN 81MG TABLET PO SCH (08:43)
[2018-06-30] MEDS: ISOSORBIDE MONONITRATE 30MG TABLET SR 24HR PO SCH (08:43)
[2018-06-30] MEDS: LISINOPRIL 10MG TABLET PO SCH (09:00)
[2018-06-30] MEDS: AMLODIPINE 10MG TABLET PO SCH (09:00)
[2018-06-30] MEDS: POTASSIUM CHLORIDE 20MEQ/PACKET PO SCH (09:18)
[2018-06-30] MEDS: PANTOPRAZOLE 40MG DR TABLET PO SCH (09:18)
[2018-06-30 09:54] LABS: CHLORIDE 102 mEq/L (98-107)
[2018-06-30 20:00] VITALS: BP 121/75
[2018-07-01] MEDS: IPRATROPIUM/ALBUTEROL 0.5-3(2.5)MG/3ML NEB HHN SCH ×6 (00:09→20:50)
[2018-07-01] MEDS: INSULIN LISPRO 100 UNITS/ML SUBCUT SCH ×4 (06:07→21:00)
[2018-07-01] MEDS: BLOOD SUGAR DIAGNOSTIC STRIP TEST SCH ×4 (06:07→21:18)
[2018-07-01 08:15] VITALS: BP 123/62
[2018-07-01] MEDS: FAMOTIDINE 20MG TABLET PO SCH ×2 (08:16→21:13)
[2018-07-01] MEDS: FUROSEMIDE 20MG TABLET PO SCH ×2 (08:16→21:13)
[2018-07-01] MEDS: CLOPIDOGREL 75MG TABLET PO SCH (08:16)
[2018-07-01] MEDS: GUAIFENESIN 600MG ER TABLET PO SCH ×2 (08:16→21:13)
[2018-07-01] MEDS: ASPIRIN 81MG TABLET PO SCH (08:17)
[2018-07-01] MEDS: ISOSORBIDE MONONITRATE 30MG TABLET SR 24HR PO SCH (08:17)
[2018-07-01] MEDS: CARVEDILOL 3.125 MG TABLET PO SCH ×2 (08:17→22:00)
[2018-07-01] MEDS: DOCUSATE SODIUM 100MG CAPSULE PO SCH ×2 (08:17→17:36)
[2018-07-01] MEDS: POTASSIUM CHLORIDE 20MEQ/PACKET PO SCH (08:18)
[2018-07-01] MEDS: ENOXAPARIN 40MG/0.4ML SYR SUBCUT SCH (08:22)
[2018-07-01] MEDS: AMLODIPINE 10MG TABLET PO SCH (09:00)
[2018-07-01] MEDS: LISINOPRIL 10MG TABLET PO SCH (09:00)
[2018-07-01] MEDS ORDERED: BENZONATATE 100MG CAPSULE PO PRN (18:00)
[2018-07-01 20:00] VITALS: BP 117/72
[2018-07-02] MEDS: IPRATROPIUM/ALBUTEROL 0.5-3(2.5)MG/3ML NEB HHN SCH ×6 (01:27→20:20)
[2018-07-02] MEDS: INSULIN LISPRO 100 UNITS/ML SUBCUT SCH ×4 (06:23→21:00)
[2018-07-02] MEDS: BLOOD SUGAR DIAGNOSTIC STRIP TEST SCH ×4 (06:23→21:23)
[2018-07-02 08:00] VITALS: BP 137/73
[2018-07-02] MEDS: ISOSORBIDE MONONITRATE 30MG TABLET SR 24HR PO SCH (08:20)
[2018-07-02] MEDS: FUROSEMIDE 20MG TABLET PO SCH ×2 (08:20→21:23)
[2018-07-02] MEDS: ENOXAPARIN 40MG/0.4ML SYR SUBCUT SCH (08:20)
[2018-07-02] MEDS: CARVEDILOL 3.125 MG TABLET PO SCH ×2 (08:21→21:23)
[2018-07-02] MEDS: CLOPIDOGREL 75MG TABLET PO SCH (08:21)
[2018-07-02] MEDS: ASPIRIN 81MG TABLET PO SCH (08:21)
[2018-07-02] MEDS: POTASSIUM CHLORIDE 20MEQ/PACKET PO SCH (08:21)
[2018-07-02] MEDS: GUAIFENESIN 600MG ER TABLET PO SCH ×2 (08:21→21:23)
[2018-07-02] MEDS: FAMOTIDINE 20MG TABLET PO SCH ×2 (08:21→21:23)
[2018-07-02] MEDS: DOCUSATE SODIUM 100MG CAPSULE PO SCH ×2 (08:21→16:26)
[2018-07-02 09:45] VITALS: BP 127/76
[2018-07-02] MEDS: AMLODIPINE 10MG TABLET PO SCH (09:52)
[2018-07-02] MEDS: LISINOPRIL 10MG TABLET PO SCH (09:53)
[2018-07-02 20:00] VITALS: BP 103/61
[2018-07-03] MEDS: IPRATROPIUM/ALBUTEROL 0.5-3(2.5)MG/3ML NEB HHN SCH ×4 (01:41→12:39)
[2018-07-03] MEDS: BLOOD SUGAR DIAGNOSTIC STRIP TEST SCH ×2 (06:01→11:15)
[2018-07-03] MEDS: INSULIN LISPRO 100 UNITS/ML SUBCUT SCH ×2 (06:02→12:32)
[2018-07-03] MEDS: POTASSIUM CHLORIDE 20MEQ/PACKET PO SCH (08:05)
[2018-07-03] MEDS: DOCUSATE SODIUM 100MG CAPSULE PO SCH (08:05)
[2018-07-03] MEDS: ENOXAPARIN 40MG/0.4ML SYR SUBCUT SCH (08:05)
[2018-07-03] MEDS: GUAIFENESIN 600MG ER TABLET PO SCH (08:05)
[2018-07-03] MEDS: ASPIRIN 81MG TABLET PO SCH (08:05)
[2018-07-03] MEDS: CLOPIDOGREL 75MG TABLET PO SCH (08:05)
[2018-07-03] MEDS: FAMOTIDINE 20MG TABLET PO SCH (08:07)
[2018-07-03] MEDS: FUROSEMIDE 20MG TABLET PO SCH (08:07)
[2018-07-03] MEDS: ISOSORBIDE MONONITRATE 30MG TABLET SR 24HR PO SCH (08:07)
[2018-07-03] MEDS: LISINOPRIL 10MG TABLET PO SCH (08:08)
[2018-07-03 09:38] VITALS: BP 118/62
[2018-07-03 10:00] VITALS: BP 94/60
[2018-07-03] MEDS: AMLODIPINE 10MG TABLET PO SCH (10:00)
[2018-07-03] MEDS: CARVEDILOL 3.125 MG TABLET PO SCH (10:00)
[2018-07-03 11:48] VITALS: BP 99/59
[2018-07-03 12:00] VITALS: BP 99/59
== END 2018-07-03 15:28 | disposition home health service (06) | DRG 189 ==
PROVIDERS: ADMIT Psychiatry & Neurology Neurology; ATTEND Hospitalist
DX: J96.00 Acute respiratory failure, unspecified whether with hypoxia or hypercapnia (principal); A41.9 Sepsis, unspecified organism; G93.41 Metabolic encephalopathy; I50.43 Acute on chronic combined systolic (congestive) and diastolic (congestive) heart failure; J69.0 Pneumonitis due to inhalation of food and vomit; E87.0 Hyperosmolality and hypernatremia; E44.1 Mild protein-calorie malnutrition; I11.0 Hypertensive heart disease with heart failure; R53.81 Other malaise; I25.10 Atherosclerotic heart disease of native coronary artery without angina pectoris; I25.5 Ischemic cardiomyopathy; E11.9 Type 2 diabetes mellitus without complications; E78.5 Hyperlipidemia, unspecified; E87.70 Fluid overload, unspecified; R74.8 Abnormal levels of other serum enzymes; E03.9 Hypothyroidism, unspecified; E78.00 Pure hypercholesterolemia, unspecified; Z79.02 Long term (current) use of antithrombotics/antiplatelets; Z79.82 Long term (current) use of aspirin; Z95.810 Presence of automatic (implantable) cardiac defibrillator; I25.2 Old myocardial infarction; Z79.899 Other long term (current) drug therapy; Z68.32 Body mass index [BMI] 32.0-32.9, adult
CPT/HCPCS: 36415; 71045; 80048; 80076; 82962; 83735; 90732; 92523; 92610; 97110; 97116; 97162; 97166; 97530; 97535; C9113; G0515; J0692; J1650; J1815; J7040; J7050; J7060; J7620

== ENCOUNTER → 2019-07-13 | Outpatient (CLI) | payer MEDICARE, MEDICAID ==
[~2019-07-13] MED LIST changes: +FURO40TA5 PO; +REGADENOSON 0.4 MG/5 ML IV ONE
== END | disposition home or self-care (01) ==
LOC: NM 08:45
PROVIDERS: ATTEND Internal Medicine Clinical Cardiac Electrophysiology
DX: I48.0 Paroxysmal atrial fibrillation (principal)
CPT/HCPCS: 78452; 93017; A9500; J2785